=== PATIENT | male | born 1960 | race Caucasian/White ===

== ENCOUNTER 2017-08-01 18:20 | Emergency (ER) | payer MEDICAID, OTHER ==
[2017-08-01] MEDS ORDERED: Sodium Chloride 0.9% 1,000 ML IV ONE (19:34)
--- NOTE | 2017-08-01 19:37 | C.PDOC ---
History Of Present Illness 56-year-old male, whose PMHx includes Stage 4 Colon Cancer with metastasis to liver and stomach, presents to the ED for evaluation of right shoulder pain which began around one month ago. Patient states his pain is worse with movement , and he was referred by his PMD, Dr. Lee, for evaluation and a CT scan. Patient denies fever, chills, or recent injury to the area. Time Seen by Provider: 08/01/17 19:30 Chief Complaint (Nursing): Abdominal Pain History Per: Patient History/Exam Limitations: no limitations Onset/Duration Of Symptoms: Other (1 month ) Current Symptoms Are (Timing): Still Present Quality Of Discomfort: "Pain" Associated Symptoms: denies: Fever, Chills Exacerbating Factors: Movement Additional History Per: Patient Past Medical History Reviewed: Historical Data, Nursing Documentation, Vital Signs Vital Signs: Last Vital Signs Temp 98.9 F 08/01/17 18:23 Pulse 88 08/01/17 18:23 Resp 19 08/01/17 18:23 BP 145/82 08/01/17 18:23 Pulse Ox 100 08/02/17 00:41 - Medical History Other PMH: Stage 4 colon cancer with metastasis to liver and stomach Surgical History: No Surg Hx Family History: States: Unknown Family Hx - Social History Hx Alcohol Use: Yes Hx Substance Use: No Review Of Systems Constitutional: Negative for: Fever, Chills Musculoskeletal: Positive for: Shoulder Pain (right ) Physical Exam - Physical Exam Appears: Non-toxic, No Acute Distress Skin: Normal Color, Warm, Dry, No Pale Head: Atraumatic, Normacephalic Eye(s): bilateral: Normal Inspection Oral Mucosa: Moist Neck: Normal ROM, Supple Chest: Symmetrical, No Deformity, No Tenderness Cardiovascular: Rhythm Regular, No Murmur Respiratory: Normal Breath Sounds, No Rales, No Rhonchi, No Wheezing Gastrointestinal/Abdominal: Soft, No Tenderness, No Guarding, No Rebound Extremity: Normal ROM (right shoulder ), No Tenderness, Capillary Refill (less than 2 seconds) Neurological/Psych: Oriented x3, Normal Speech, Normal Cognition ED Course And Treatment - Laboratory Results Result Diagrams: 08/01/17 20:11 08/01/17 20:11 Lab Interpretation: Abnormal (mild elev LFT's) O2 Sat by Pulse Oximetry: 100 (on RA) Pulse Ox Interpretation: Normal - CT Scan/US CT chest/abd Other Rad Studies (CT/US): Read By Radiologist, Radiology Report Reviewed CT/US Interpretation: IMPRESSION: No acute findings or significant abnormalities within the chest. Small stable indeterminate nodule 4 mm unchanged since 2017. For lung nodules 4 mm or smaller in size, if the patient is considered high risk for lung cancer or. metastatic disease, follow-up CT in 12 months is recommended. If the patient is considered low risk. and under age 35, no follow-up is needed. Ct chest/abd Other Rad Studies (CT/US): Read By Radiologist, Radiology Report Reviewed CT/US Interpretation: IMPRESSION: Hepatic metastasis is seen. No acute findings otherwise noted within the abdomen. Thank you for allowing us to participate in the care of your patient. Dictated and Authenticated by: Lenin Amezquita MD. 08/02/2017 12:39 AM Eastern Time ([place] & [place]) Progress Note: Bloodwork, urinalysis, CT Chest/Abdomen ordered and reviewed. Toradol IVP and IV Fluids administered. Medical Decision Making Medical Decision Making: known colon CA with liver mets. R shoulder pain may be referred from liver capsule/diaphragmatic irritation of mets. no acute issues now normal R shoudler exam. opt f/u with Dr. Lee. Disposition Doctor Will See Patient In The: Office Counseled Patient/Family Regarding: Studies Performed, Diagnosis - Disposition Disposition: HOME/ ROUTINE Disposition Time: 00:45 Condition: GOOD Forms: [facility] (American) - Clinical Impression Clinical Impression: Colon cancer metastasized to liver, Shoulder pain - Scribe Statement The provider has reviewed the documentation as recorded by the Scribe (Renate Dang) Provider Attestation: All medical record entries made by the Scribe were at my direction and personally dictated by me. I have reviewed the chart and agree that the record accurately reflects my personal performance of the history, physical exam, medical decision making, and the department course for this patient. I have also personally directed, reviewed, and agree with the discharge instructions and disposition.
[2017-08-01] MEDS ORDERED: Sodium Chloride 0.9% 1,000 ML ONE (19:59)
[2017-08-01 20:08] LABS: SQUAMOUS EPITHIAL 1 /hpf (0-5); URINE BACTERIA RARE (<OCC); URINE BILIRUBIN NEGATIVE (NEGATIVE); URINE BLOOD 1+ (NEGATIVE); URINE CLARITY Hazy (Clear); URINE COLOR Amber (YELLOW); URINE GLUCOSE (UA) 2+ mg/dL (Normal); URINE LEUKOCYTE ESTERASE NEG Leu/uL (Negative); URINE PROTEIN 3+ mg/dL (NEGATIVE); URINE UROBILINOGEN NORMAL mg/dL (0.2-1.0)
[2017-08-01 20:17] LABS: BASO # 0.1 K/uL (0.0-0.2); BASO % 0.4 % (0.0-2.0); EOS % 0.3 % (0.0-4.0); HEMOGLOBIN 14.6 g/dL (12.0-18.0); LYMPH # 1.5 K/uL (1.0-4.3); LYMPH % 13.4 % (20.0-40.0); MEAN CELL VOLUME 90.7 fL (80.0-94.0); MEAN CORPUSCULAR HEMOGLOBIN 30.9 pg (27.0-31.0); MEAN CORPUSCULAR HGB CONC 34.1 g/dL (33.0-37.0); MEAN PLATELET VOLUME 7.6 fL (7.2-11.7); MONO # 0.5 K/uL (0.0-0.8); MONO % 4.2 % (0.0-10.0); NEUT # 9.4 K/uL (1.8-7.0); NEUT % 81.7 % (50.0-75.0); RBC 4.73 Mil/uL (4.40-5.90); RED CELL DISTRIBUTION WIDTH 14.1 % (11.5-14.5); WHITE BLOOD COUNT 11.5 K/uL (4.8-10.8)
[2017-08-01 20:25] LABS: INR 1.1; PROTHROMBIN TIME 11.8 SECONDS (9.7-12.2)
[2017-08-01 20:32] LABS: ALB/GLOB RATIO 1.2 (1.0-2.1); ALBUMIN 4.8 g/dL (3.5-5.0); ALT/SGPT 113 U/L (21-72); AST/SGOT 88 U/L (17-59); BLOOD UREA NITROGEN 25 mg/dL (9-20); CALCIUM 9.8 mg/dl (8.6-10.4); GFR AFRICAN-AMERICAN > 60; GFR NON-AFRICAN AMERICAN 57; LIPASE 163 U/L (23-300)
[2017-08-01] MEDS ORDERED: Iodixanol 320 MG/ML 100 ML BOTTLE IV ONE ×2 (20:59→23:25)
[2017-08-02 01:04] VITALS: BP 148/66; PULSE 79; RESP 20; TEMP 97.8; O2SAT 99
--- NOTE | 2017-08-02 15:57 | CT ---
PROCEDURE: CT Chest, Abdomen and Pelvis with intravenous contrast HISTORY: Colon CA w mets to stom/liver, now R shoulder pain COMPARISON: 01/31/2017. TECHNIQUE: CT scan of the chest and abdomen was performed after administration of intravenous contrast. Oral contrast was administered. Coronal and sagittal reformatted images were obtained. IV dose administered: 100 mL Visipaque Radiation dose: Total exam DLP = 486.93 mGy-cm. This CT exam was performed using one or more of the following dose reduction techniques: Automated exposure control, adjustment of the mA and/or kV according to patient size, and/or use of iterative reconstruction technique. FINDINGS: CT CHEST WITH CONTRAST: LUNGS: The lungs are well inflated and clear. There is a stable 5 mm subpleural nodule in the lingula. No mass or consolidation. MEDIASTINUM: The aorta is normal in caliber. No aortic dissection. Normal size heart. No pericardial effusion. LYMPH NODES: No pathologic mediastinal or hilar. PLEURA: No pneumothorax. No pleural fluid. BONES: Unremarkable. OTHER FINDINGS: None. CT ABDOMEN AND PELVIS: LIVER: The liver is normal in size. There is interval increase in size of known multiple low-attenuation masses in the liver, the largest measures 2.8 cm. GALLBLADDER AND BILE DUCTS: No calcified gallstones. PANCREAS: Normal in size with homogeneous enhancement. No gross lesion or ductal dilatation. SPLEEN: Normal in size and appearance. ADRENALS: No discrete nodule. KIDNEYS AND URETERS: Normal in size with homogeneous enhancement. No hydronephrosis. No solid mass. VASCULATURE: No aortic aneurysm. BOWEL: The visualized small bowel loops are normal in caliber. The visualized colon is unremarkable. PERITONEUM: No free fluid. No free air. LYMPH NODES: No enlarged lymph nodes. BONES: No acute fracture. Multilevel degenerative disease. No evidence for metastatic lesions. OTHER FINDINGS: None. IMPRESSION: Interval progression of known hepatic metastatic lesions. Additional comments as described above. A preliminary report was provided by [employer].
== END 2017-08-02 01:04 | disposition home or self-care (01) ==
LOC: C.ER 18:20
DX: M25.511 Pain in right shoulder (principal); C18.9 Malignant neoplasm of colon, unspecified; C78.7 Secondary malignant neoplasm of liver and intrahepatic bile duct; C78.89 Secondary malignant neoplasm of other digestive organs
CPT/HCPCS: 71260; 74160; 80053; 81001; 83690; 84484; 85025; 85610; 85730; 96361; 96374; 99285; J1885; J7030; Q9967